=== PATIENT | female | born 1950 ===

== ENCOUNTER 2018-11-07 09:45 | Outpatient (CLI) | payer OTHER ==
[~2018-11-07 09:45] MED LIST: TREXALL10 MG
== END 2018-11-07 10:12 | disposition home or self-care (01) ==
LOC: RAD 09:45
DX: J44.1 Chronic obstructive pulmonary disease with (acute) exacerbation (principal)

== ENCOUNTER 2019-03-30 10:59 | Inpatient (IN) | payer OTHER ==
[~2019-03-30] VITALS: Ht 157.5 cm; Wt 64.9 kg
[2019-03-30] MEDS ORDERED: RISEDRONATE SO150 MG (11:57)
[2019-03-30] MEDS ORDERED: MAXIMUM D310000 UNIT (11:57)
[2019-03-30] MEDS ORDERED: RESTASIS MULTI5.5 ML (11:57)
[2019-03-30] MEDS ORDERED: LIPITOR20 MG (11:57)
[2019-03-30] MEDS ORDERED: NORFLEX100MG (11:58)
[2019-03-30] MEDS ORDERED: TRAMADOL HCL50 MG (11:58)
[2019-03-30] MEDS ORDERED: DELTASONE20 MG (11:59)
[2019-03-30] MEDS ORDERED: ALBUTEROL2.5 MG/3 M (11:59)
== END 2019-04-03 12:18 | disposition home or self-care (01) | DRG 440 ==
LOC: ER 10:59 → ICU-2 18:07 → MEDJ 04-01 11:14
PROVIDERS: ADMIT Internal Medicine
PROC: 02HV33Z Insertion of Infusion Device into Superior Vena Cava, Percutaneous Approach (ICD-10-PCS; principal; 2019-03-30)
PROC: BW40ZZZ Ultrasonography of Abdomen (ICD-10-PCS; 2019-03-31)
PROC: BF37ZZZ Magnetic Resonance Imaging (MRI) of Pancreas (ICD-10-PCS; 2019-04-01)
DX: K85.80 Other acute pancreatitis without necrosis or infection (principal); K29.60 Other gastritis without bleeding; K29.80 Duodenitis without bleeding; E78.2 Mixed hyperlipidemia; J45.998 Other asthma

== ENCOUNTER → 2020-12-07 13:05 | Outpatient (CLI) | payer OTHER ==
[~2020-12-07 13:05] MED LIST changes: +ALBUTEROL2.5 MG/3 M; +DELTASONE20 MG; +LIPITOR20 MG; +MAXIMUM D310000 UNIT; +NORFLEX100MG; +RESTASIS MULTI5.5 ML; +RISEDRONATE SO150 MG; +TRAMADOL HCL50 MG
== END | disposition home or self-care (01) ==
LOC: LAB 13:05
PROVIDERS: ATTEND Internal Medicine Pulmonary Disease
DX: R05 Cough (principal); Z20.828 Contact with and (suspected) exposure to other viral communicable diseases; R06.02 Shortness of breath; R50.9 Fever, unspecified

== ENCOUNTER 2022-09-13 07:04 | Outpatient (CLI) | payer OTHER | END 2022-09-13 07:10 | disposition home or self-care (01) | LOC: TOM 07:04 | PROVIDERS: ATTEND Internal Medicine Pulmonary Disease | DX: J43.2 Centrilobular emphysema (principal); J30.1 Allergic rhinitis due to pollen; J45.30 Mild persistent asthma, uncomplicated; Z86.16 Personal history of COVID-19; R06.02 Shortness of breath ==